=== PATIENT | female | born 1965 ===

== ENCOUNTER 2016-08-18 09:46 | Emergency (ER) | payer MEDICAID, OTHER ==
[~2016-08-18] VITALS: Ht 175.3 cm; Wt 86.4 kg
[2016-08-18 09:49] VITALS: BP 185/118; PULSE 70; RESP 16; TEMP 98.4; O2SAT 99
[2016-08-18 10:12] VITALS: BP 177/109; PULSE 62; RESP 16
[2016-08-18] MEDS ORDERED: AMLO5TAB2 PO (10:13)
[2016-08-18] MEDS ORDERED: amLODIPine BESYLATE 5 MG TAB PO ONE (10:15)
--- NOTE | 2016-08-18 10:17 | PD ---
HPI Chief Complaint: Hypertension Time Seen by Provider: 09:54 Travel History International Travel<30 days: No Contact w/Intl Traveler<30days: No Traveled to known affect area: No History of Present Illness HPI Patient is a 42-year-old female who presents to emergency with complaints of high blood pressure. Patient reports that she was at her dentist office yesterday, reports that she was told that her blood pressure was very high and that she would need to go to the ER. Patient reports "i felt fine and i was nervous about going to the dentist so I didn't come in yesterday." Reports that she did call her pcp's office and was told to call back for an appointment. Reports that she checked her blood pressure at home this morning and "it was 160/100" Reports no history of htn, reports strong family history of htn. Patient at this time denies headache/dizzyness/vision changes. Denies chest pain/sob. Denies abdominal pain. Patient reports no symptoms at this time , reports "I feel fine, I'm just nervous." She currently does not take any medications PFSH Past Medical History Medical History: Denies Significant Hx Diminished Hearing: No Tetanus Vaccination: Unknown ?: Not LMP: 6 months ago Past Surgical History Surgical History: No Previous Surgery Social History Alcohol Use: No Tobacco Use: Yes (1/2 ppd) Substance Use: No Allergies-Medications (Allergen,Severity, Reaction): Coded Allergies: No Known Allergies (Unverified , 08/18/16) Reported Meds & Prescriptions Reported Meds & Active Scripts Active Amlodipine (Amlodipine Besylate) 5 Mg Tab 5 Mg PO DAILY Review of Systems General / Constitutional: No: Fever Eyes: No: Visual changes HENT: No: Headaches Cardiovascular: No: Chest Pain or Discomfort Respiratory: No: Shortness of Breath Gastrointestinal: No: Abdominal Pain Genitourinary: No: Dysuria Musculoskeletal: No: Pain Skin: No Rash Neurologic: No: Weakness Psychiatric: No: Depression Endocrine: No: Polydipsia Hematologic/Lymphatic: No: Easy Bruising Physical Exam Narrative GENERAL: NAD, Nontoxic SKIN: Focused skin asessment warm/dry. HEAD: Atraumatic. Normocephalic. EYES: Pupils equal and round. No scleral icterus. No injection or drainage. ENT: No nasal bleeding or discharge. Mucous membranes pink and moist. NECK: Trachea midline. No JVD. CARDIOVASCULAR: Regular rate and rhythm. No murmur appreciated. RESPIRATORY: No accessory muscle use. Clear to auscultation. Breath sounds equal bilaterally. GASTROINTESTINAL: Abdomen soft, non-tender, nondistended. Hepatic and splenic margins not palpable. MUSCULOSKELETAL: No obvious deformities. No clubbing. No cyanosis. No edema. NEUROLOGICAL: Awake and alert. No obvious cranial nerve deficits. Motor grossly within normal limits. Normal speech. PSYCHIATRIC: Appropriate mood and affect; insight and judgment normal. Data Data Last Documented VS Vital Signs Date Time Temp Pulse Resp B/P Pulse Ox O2 Delivery O2 Flow Rate FiO2 08/18/16 10:12 62 16 177/109 08/18/16 09:49 98.4 99 Orders Amlodipine (Norvasc) (08/18/16 10:15) [facility] Medical Decision Making Medical Screen Exam Complete: Yes Emergency Medical Condition: Yes Interpretation(s) Vital Signs Date Time Temp Pulse Resp B/P Pulse Ox O2 Delivery O2 Flow Rate FiO2 08/18/16 10:00 16 08/18/16 09:49 98.4 70 16 185/118 99 Differential Diagnosis asymptomatic hypertension Narrative Course Patient is a 50 year old female who presents to ER with c/o of hypertension. Patient reports that she does not have history of htn, reports that she was told by her dentist that her blood pressure was high yesterday. She did check her bp today and it was elevated at 160/100. Patient is asymptomatic at this time, denies cp/sob. Denies headache/dizzyness. Patient is completely asymptomatic at this time. Patient will make an appointment with her primary care doctor as soon as possible for blood pressure recheck. Plan To start her on antihypertensives as her bp was high yesterday as well as today. Patient understands signs and symptoms of when to return to the ER. Understands that she may return to the ER at any time for re-evaluation of her symptoms. Diagnosis Primary Impression: Asymptomatic hypertension Patient Instructions: General Instructions Additional Instructions: Please follow up with your primary care doctor as soon as possible You will need a blood pressure recheck in 2-3 days Return to ER as needed Med/Other Pt SpecificInfo: Prescription(s) given Scripts Amlodipine 5 Mg Tab5 Mg PO DAILY #30 TAB Ref 0 Prov:Sally Whittaker DO 08/18/16 Disposition: 01 DISCHARGE HOME Condition: Stable Sally Whittaker DO Aug 18, 2016 10:17 Sally Whittaker DO Aug 18, 2016 10:17
== END 2016-08-18 10:44 | disposition home or self-care (01) ==
LOC: PHED 09:46
DX: R03.0 Elevated blood-pressure reading, without diagnosis of hypertension (principal); F17.210 Nicotine dependence, cigarettes, uncomplicated
CPT/HCPCS: 99283